=== PATIENT | male | born 1960 | race Two or more races ===

== ENCOUNTER 2019-11-09 17:50 | Emergency (ER) | payer OTHER ==
[~2019-11-09] VITALS: Ht 160 cm; Wt 77.1 kg
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
--- NOTE | 2019-11-09 18:13 | NUR ---
ROBYNI DEGRASSE DIGITAL TRAFFIC COORDINATOR AT BEDSIDE FOR EVAL.
--- NOTE | 2019-11-09 18:22 | NUR ---
DIRECTIONAL DRILLER AT [facility] FOR XRAY.
--- NOTE | 2019-11-09 19:11 | NUR ---
DANTE WRAP DONE BY ACQUISITION ANALYST.
--- NOTE | 2019-11-09 19:11 | NUR ---
Patient discharged to home in stable condition. Written and verbal after care instructions given. Patient verbalizes understanding of instruction.
[2019-11-09 19:12] VITALS: BP 121/69
== END 2019-11-09 19:15 | disposition home or self-care (01) ==
LOC: ER 17:50
DX: S93.401A Sprain of unspecified ligament of right ankle, initial encounter (principal); W01.0XXA Fall on same level from slipping, tripping and stumbling without subsequent striking against object, initial encounter; Y92.89 Other specified places as the place of occurrence of the external cause
CPT/HCPCS: 73610-TC; 73630-TC